=== PATIENT | female | born 1940 | race Caucasian/White ===

== ENCOUNTER → 2016-05-28 | Outpatient (CLI) | payer OTHER, BC ==
[~2016-05-28] MED LIST: ACC10 PO; BIMA0.03 OP; CALCTAB7 PO; DIPH-437 PO; DORZ1SOL OP; ELM100 PO; GNF1 PO; HYDC25 PO; LORA-741 PO; METO25TA56 PO; POTAPOW29 PO; PSYL55.43 PO; RSTOPS OP; SIMV80TA2 PO; ULT/50 PO; ZNTT/150 PO
[2016-05-28 13:48] LABS: URINE APPEARANCE CLEAR (CLEAR); URINE BILIRUBIN NEG (NEG); URINE COLOR YELLOW; URINE EPITHELIAL CELL AUTO >30 /lpf (0-5); URINE NITRITE NEG (NEG); URINE SPECIFIC GRAVITY 1.021 (1.000-1.030); UROBILINOGEN NEG (NEG)
[2016-05-28 13:52] LABS: MANUAL MICROSCOPIC REQUIRED? NO; REVIEW REQ? NO
== END | disposition home or self-care (01) ==
LOC: C.LABMFLN 07:37
PROVIDERS: ATTEND Family Medicine
DX: R35.0 Frequency of micturition (principal)

== ENCOUNTER → 2017-01-03 | Outpatient (CLI) | payer OTHER, BC ==
[2017-01-03 18:20] LABS: BASO % 0.7 %; BASO ABS # 0.06 K/uL (0-0.2); COMPLETE YES; EOS % 1.9 %; HEMATOCRIT 33.6 % (37-47); IG% 0.2 %; LYMPH % 34.2 %; LYMPH ABS # 2.81 K/uL (1.2-3.4); MEAN CELL VOLUME 97.1 fL (80-100); MEAN CORPUSCULAR HEMOGLOBIN 32.7 pg (25-34); MEAN CORPUSCULAR HGB CONC 33.6 g/dl (32-36); MEAN PLATELET VOLUME 10.7 fL (7.4-10.4); MONO % 8.8 %; NEUT % 54.2 %; PLATELET COUNT 359 K/uL (130-400); RED BLOOD COUNT 3.46 M/uL (4.2-5.4); VACUOLIZATION 1+; WHITE BLOOD COUNT 8.22 K/uL (4.8-10.8)
[2017-01-03 18:52] LABS: FERRITIN 187.5 ng/ml (8.0-388.0); THYROID STIMULATING HORMONE 2.63 uIu/ml (0.300-4.500)
== END | disposition home or self-care (01) ==
LOC: C.LABMFLN 12:33
PROVIDERS: ATTEND Family Medicine
DX: L65.9 Nonscarring hair loss, unspecified (principal)

== ENCOUNTER → 2017-02-20 | Outpatient (CLI) | payer OTHER, BC ==
[~2017-02-20] MED LIST changes: +RANI150T85 PO; -ZNTT/150 PO
== END | disposition home or self-care (01) ==
LOC: C.LABMFLN 14:15
PROVIDERS: ATTEND Urology
DX: R30.0 Dysuria (principal)

== ENCOUNTER → 2017-04-04 | Outpatient (CLI) | payer OTHER, BC | END | disposition home or self-care (01) | LOC: C.LABMFLN 13:14 | PROVIDERS: ATTEND Family Medicine | DX: M19.90 Unspecified osteoarthritis, unspecified site (principal) ==